=== PATIENT | male | born 1940 | race Caucasian/White ===

== ENCOUNTER 2017-07-01 11:36 | Emergency (ER) | payer MEDICARE ==
[2017-07-01] MEDS ORDERED: Sodium Chloride 0.9% 1000 ML 1,000 ML IV STA (11:41)
[2017-07-01] MEDS ORDERED: Adacel Vial IM ONE ×2 (11:43→11:45)
[2017-07-01] MEDS ORDERED: Sodium Chloride 0.9% 1000 ML 1,000 ML ONE (11:44)
[2017-07-01] MEDS ORDERED: XYLOCAINE 1% HCL 20 ML MDV IJ ONE (11:46)
--- NOTE | 2017-07-01 11:54 | ERPHSYRPT ---
- History of Present Illness Time Seen by Provider: 07/01/17 11:48 Source: patient, EMS Exam Limitations: no limitations Physician History: pt episode of syncope today while sitting, +headache and left foot laceration, no NV, initial SP 80, P0gylIB 95%, no chest pain, +headache Allergies/Adverse Reactions: No Known Drug Allergies Allergy (Unverified 08/26/15 18:06) Home Medications: Allopurinol 100 mg [Zyloprim 100 mg] 100 mg PO DAILY 08/26/15 [History] Carvedilol 12.5 mg [Coreg 12.5 mg] 12.5 mg PO BID 08/26/15 [History] Finasteride 5 mg [Proscar 5 MG] 5 mg PO HS 08/26/15 [History] Levothyroxine Sodium 150 Mcg [Synthroid 150 Mcg] 150 mcg PO DAILY 08/26/15 [History] Metformin HCl 500 mg [Glucophage 500 MG] 1,000 mg PO DAILY 08/26/15 [ History] Pravastatin Sodium [Pravachol] 80 mg PO HS 08/26/15 [History] Trazodone HCl 50 mg [Desyrel 50 mg] 50 mg PO HS PRN 08/26/15 [History] Hx Tetanus, Diphtheria Vaccination/Date Given: No Hx Influenza Vaccination/Date Given: Yes Hx Pneumococcal Vaccination/Date Given: No - Past Medical History Pertinent Past Medical History: Yes Cardiac History: Congestive Heart Failure, Hypertension Respiratory History: Lung Cancer Endocrine Medical History: Diabetes Type II, Hyperthyroidism GI Medical History: Hernia, Ulcer - Past Surgical History Past Surgical History: Yes Neuro Surgical History: No Pertinent History Cardiac: CABG Respiratory: Lobectomy Gastrointestinal: Cholecystectomy, Hernia Repair Other Surgical History: RIGHT - Social History Smoking Status: Never smoker Exposure to second hand smoke: No Drug Use: none Patient Lives Alone: No - Review of Systems Constitutional: No Fever Eyes: No Symptoms Ears, Nose, & Throat: No Epistaxis Respiratory: No Cough, No Cyanosis, No Stridor Cardiac: No Chest Pain Abdominal/Gastrointestinal: No Abdominal Pain, No Vomiting Musculoskeletal: No Back Pain, No Neck Pain Skin: Other (foot laceration) Neurological: Headache, No Focal Weakness Physical Exam - Nursing Vital Signs Nursing Vital Signs: Initial Vital Signs Temperature 97.4 F 07/01/17 11:37 Pulse Rate 57 L 07/01/17 11:37 Respiratory Rate 16 07/01/17 11:37 Blood Pressure 114/47 07/01/17 11:37 O2 Sat by Pulse Oximetry 99 07/01/17 11:37 Pain Scale Pain Intensity 7 - Adry Coma Scale Best Eye Response (Adry): (4) open spontaneously Best Verbal Response (Adry): (5) oriented Best Motor Response (Cherry Log): (6) obeys commands Adry Total: 15 - Physical Exam General Appearance: no apparent distress, alert Eye Exam: bilateral eye: PERRL, EOMI Ears, Nose, Throat Exam: moist mucous membranes Neck Exam: normal inspection, non-tender Respiratory: normal breath sounds Cardiovascular: regular rate/rhythm Gastrointestinal: soft, No tenderness Back Exam: No CVA tenderness, No vertebral tenderness Extremity Exam: other (tender left foot at 1st MTP joint w/ 2cm laceration, sen and pulses intact, rom limited by pain) 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 Exam: normal speech, PERRL Skin Exam: other (hand radio engineering teacher equal) SpO2 Interpretation: normal Oxygen Delivery: Room Air Procedures - Laceration/Wound Repair Left Proximal Toe Progress: 07/01/17 14:02 sterile prep, copious irrigation, no fb or tendon lac seen, interrupted 3-0 nylon five sutures and sterile dress, sutures out in 14 days or sooner - Course Nursing assessment & vital signs reviewed: Yes EKG Interpreted by Me: Other (nsr 63 no stemi) - Radiology Exams Foot X-ray Interpretation: Interpreted by me, Other (+fx of the distal left first metatarsal) Chest X-ray Interpretation: Interpreted by me, Other (no gross infil) - CT Exams Head CT Interpretation: Discussed w/radiologist, Other (no acute bleed) Ordered Tests: Active Orders 24 hr Category Date Time Status Mobile Manager STAT Care 07/01/17 11:42 Active EKG-ER Only STAT Care 07/01/17 11:41 Active IV Insertion STAT Care 07/01/17 11:41 Active Prepare for Sutures STAT Care 07/01/17 11:46 Active Pulse Oximetry (ED) STAT Care 07/01/17 11:41 Active Sutures STAT Care 07/01/17 11:47 Active CHEST 1 VIEW (PORTABLE) Stat Exams 07/01/17 11:41 Taken FOOT (MINIMUM 3 VIEWS) Stat Exams 07/01/17 11:44 Taken HEAD WITHOUT CONTRAST [CT] Stat Exams 07/01/17 11:42 Taken BLOOD CULTURE Stat Lab 07/01/17 12:10 Received CBC W DIFF Stat Lab 07/01/17 11:55 Completed CMP Stat Lab 07/01/17 11:55 Completed Lactic Acid Stat Lab 07/01/17 12:15 Results Manual Differential NC Stat Lab 07/01/17 11:55 Completed PROTIME WITH INR Stat Lab 07/01/17 11:55 Completed SED RATE [Erythrocyte Sedimentation Rate] Stat Lab 07/01/17 11:46 Completed TROPONIN Q3H Lab 07/01/17 11:55 Completed TROPONIN Q3H Lab 07/01/17 14:45 Ordered TROPONIN Q3H Lab 07/01/17 17:45 Ordered TROPONIN Q3H Lab 07/01/17 20:45 Ordered TROPONIN Q3H Lab 07/01/17 23:45 Ordered UA W/RFX UR CULTURE Stat Lab 07/01/17 11:41 Ordered Medication Summary Generic Name Dose Route Start Last Admin Trade Name Freq PRN Reason Stop Dose Admin Cefazolin Sodium/Dextrose 1 gm in 50 mls @ 100 mls/hr 07/01/17 14:00 Kefzol 1 Gm/50 Ml Premix IV 07/01/17 14:29 STAT STA Discontinued Medications Generic Name Dose Route Start Last Admin Trade Name Freq PRN Reason Stop Dose Admin Bacitracin Confirm 07/01/17 13:57 Baciguent Packet Administered 07/01/17 13:58 Dose 1 gm .ROUTE .STK-MED ONE Diphtheria/Tetanus/Acell Pertussis 0.5 ml 07/01/17 11:43 07/01/17 11:46 Adacel Vial IM 07/01/17 11:44 0.5 ml .ONCE ONE Administration Diphtheria/Tetanus/Acell Pertussis Confirm 07/01/17 11:45 Adacel Vial Administered 07/01/17 11:46 Dose 0.5 ml IM .STK-MED ONE Sodium Chloride 1,000 mls @ 999 mls/hr 07/01/17 11:41 07/01/17 11:46 Sodium Chloride 0.9% 1000 Ml IV 07/01/17 12:41 999 mls/hr .Q1H1M STA Administration Sodium Chloride Confirm 07/01/17 11:44 Sodium Chloride 0.9% 1000 Ml Administered 07/01/17 11:45 Dose 1,000 mls @ ud .ROUTE .STK-MED ONE Lidocaine HCl 10 ml 07/01/17 11:46 Xylocaine 1% Hcl 20 Ml Mdv IJ 07/01/17 11:47 STAT ONE Lidocaine HCl Confirm 07/01/17 13:57 Xylocaine 1% Hcl 20 Ml Mdv Administered 07/01/17 13:58 Dose 5 ml .ROUTE .STK-MED ONE Lab/Rad Data: Laboratory Result Diagrams 07/01/17 11:55 07/01/17 11:55 Laboratory Results 07/01/17 07/01/17 07/01/17 Range/Units 12:15 11:55 11:55 WBC (4.0-10.5) K/mm3 RBC (4.1-5.6) M/mm3 Hgb (12.5-18.0) gm/dl Hct (42-50) % MCV (78-100) fl MCH (26-32) pg MCHC (32-36) g/dl RDW (11.5-14.0) % Plt Count (150-450) K/mm3 MPV (6-9.5) fl Segmented Neutrophils (36.-66.) % Lymphocytes (Manual) (24-44) % Monocytes (Manual) (0.0-12.0) % Eosinophils (Manual) (0.00-3.0) % Differential Comment Hypersegmented Polys Platelet Estimate (NORMAL) ESR (0-15) mm/hr INR 1.11 (0.8-3.0) Sodium (136-145) mEq/L Potassium (3.5-5.1) mEq/L Chloride (98-107) mEq/L Carbon Dioxide (21-32) mEq/L Anion Gap (5-15) MEQ/L BUN (9-20) mg/dL Creatinine (0.55-1.30) mg/dl Estimated GFR ML/MIN Glucose (70-110) MG/DL Lactic Acid 2.2 H (0.4-2.0) Calcium (8.5-10.1) mg/dL Total Bilirubin (0.2-1.0) mg/dL AST (15-37) U/L ALT (12-78) U/L Alkaline Phosphatase (46-116) U/L Troponin I 0.308 H* (0.000-0.056) ng/ml Serum Total Protein (6.4-8.2) gm/dL Albumin (3.4-5.0) g/dL 07/01/17 07/01/17 07/01/17 Range/Units 11:55 11:55 11:46 WBC 14.9 H (4.0-10.5) K/mm3 RBC 4.54 (4.1-5.6) M/mm3 Hgb 14.1 (12.5-18.0) gm/dl Hct 43.0 (42-50) % MCV 94.7 (78-100) fl MCH 31.1 (26-32) pg MCHC 32.8 (32-36) g/dl RDW 14.2 H (11.5-14.0) % Plt Count 240 (150-450) K/mm3 MPV 11.8 H (6-9.5) fl Segmented Neutrophils 68 H (36.-66.) % Lymphocytes (Manual) 20 L (24-44) % Monocytes (Manual) 9 (0.0-12.0) % Eosinophils (Manual) 3 (0.00-3.0) % Differential Comment NORMAL Hypersegmented Polys 1+ Platelet Estimate NORMAL (NORMAL) ESR 21 H (0-15) mm/hr INR (0.8-3.0) Sodium 137 (136-145) mEq/L Potassium 4.6 (3.5-5.1) mEq/L Chloride 101 (98-107) mEq/L Carbon Dioxide 22.1 (21-32) mEq/L Anion Gap 18.9 H (5-15) MEQ/L BUN 53 H (9-20) mg/dL Creatinine 1.79 H (0.55-1.30) mg/dl Estimated GFR 39 ML/MIN Glucose 100 (70-110) MG/DL Lactic Acid (0.4-2.0) Calcium 9.1 (8.5-10.1) mg/dL Total Bilirubin 0.60 (0.2-1.0) mg/dL AST 44 H (15-37) U/L ALT 45 (12-78) U/L Alkaline Phosphatase 63 (46-116) U/L Troponin I (0.000-0.056) ng/ml Serum Total Protein 7.1 (6.4-8.2) gm/dL Albumin 3.2 L (3.4-5.0) g/dL - Progress Progress: unchanged Progress Note: 07/01/17 14:08 pt released by [place] for transfer to accepting Dr Phyllis fontanez [place] Counseled pt/family regarding: lab results, diagnosis, need for follow-up, rad results - Departure Time of Disposition: 14:06 Departure Disposition: Transfer Clinical Impression: Elevated troponin, Fracture, Laceration Syncope Qualifiers: Syncope type: unspecified Qualified Code(s): R55 - Syncope and collapse Foot fracture, left Qualifiers: Encounter type: initial encounter Fracture type: open Qualified Code(s): S92.902B - Unspecified fracture of left foot, initial encounter for open fracture Condition: Stable Critical Care Time: No Referrals: [facility] [Primary Care Provider] -
[2017-07-01 12:21] LABS: Lactic Acid 2.2 (0.4-2.0)
[2017-07-01 12:29] LABS: Hemoglobin 14.1 gm/dl (12.5-18.0); Mean Cell Volume 94.7 fl (78-100); Mean Corpuscular Hemoglobin 31.1 pg (26-32); Mean Corpuscular Hgb Concent. 32.8 g/dl (32-36); Mean Platelet Volume 11.8 fl (6-9.5); Platelet Count 240 K/mm3 (150-450); Red Blood Count 4.54 M/mm3 (4.1-5.6); Red Cell Distribution Width 14.2 % (11.5-14.0); White Blood Count 14.9 K/mm3 (4.0-10.5)
[2017-07-01 12:37] LABS: INR 1.11 (0.8-3.0)
[2017-07-01 12:49] LABS: ALBUMIN 3.2 g/dL (3.4-5.0); ANION GAP 18.9 MEQ/L (5-15); BILIRUBIN,TOTAL 0.6 mg/dL (0.2-1.0); Calcium 9.1 mg/dL (8.5-10.1); Carbon Dioxide 22.1 mEq/L (21-32); Creatinine 1 1.79 mg/dl (0.55-1.30); Potassium 4.6 mEq/L (3.5-5.1); Total Protein 7.1 gm/dL (6.4-8.2)
[2017-07-01 12:57] LABS: Eosinophil 3 % (0.00-3.0); Hypersegmented Polys 1+; Lymphocytes 20 % (24-44); Monocyte 9 % (0.0-12.0); Neutrophils 68 % (36.-66.); Platelet Estimate NORMAL (NORMAL); Total Cells Counted 100
[2017-07-01] MEDS ORDERED: XYLOCAINE 1% HCL 20 ML MDV ONE (13:57)
[2017-07-01] MEDS ORDERED: BACIGUENT PACKET ONE (13:57)
[2017-07-01] MEDS ORDERED: KEFZOL 1 GM/50 ML PREMIX** 1 GM/50 ML IVPB IV STA (14:00)
[2017-07-01] MEDS ORDERED: BABY ASPIRIN 81 MG CHEW PO ONE (14:09)
[2017-07-01] MEDS ORDERED: BACIGUENT PACKET TP ONE (15:10)
[2017-07-01] MEDS ORDERED: BABY ASPIRIN 81 MG CHEW ONE (15:23)
[2017-07-01] MEDS ORDERED: KEFZOL 1 GM/50 ML PREMIX** 1 GM/50 ML IVPB IV ONE (15:23)
[2017-07-01 15:58] VITALS: BP 123/54; PULSE 69; O2SAT 99
--- NOTE | 2017-07-01 20:51 | XRAY ---
Indication: Syncope. Multiple contiguous axial images obtained through the head without contrast. Comparison: August 26, 2015. Stable age-appropriate global atrophy and minimal periventricular degenerative micro-ischemia. There is now a 1.5 x 0.8 cm focus of subcortical remote appearing infarct in the right posterior parietal lobe. No acute intracranial hemorrhage, abnormal extra-axial fluid collection, or mass effect. Fourth ventricle is midline. Bony calvarium intact. Visualized paranasal sinuses and mastoid air cells clear. Impression: Again nonacute senile brain. Interval small right parietal infarct. Comment: Preliminary interpretation was made by [facility]. No critical discrepancy. CTDI 50.38
--- NOTE | 2017-07-01 20:55 | XRAY ---
Indication: Pain. Comparison: None 3 views of the left foot demonstrates mild osteopenia, small heel spurs, and 1st MTP bunion deformity with mild degenerative changes. Nondisplaced corner fractures seen base of the 1st/2nd/3rd proximal phalanges, medial aspect. Remaining left foot unremarkable.
--- NOTE | 2017-07-01 20:57 | XRAY ---
Indication: Syncope. Comparison: None Portable chest markedly underinflated without focal infiltrate, consolidation, or large effusion. Heart is not enlarged and demonstrates previous CABG surgery. Bony thorax intact with mild osteopenia, degenerative changes, and old right rib fractures. Impression: Nonacute limited underinflated chest with chronic features.
== END 2017-07-01 15:59 | disposition short-term general hospital (02) ==
LOC: ED 11:36
PROC: 0HQNXZZ Repair Left Foot Skin, External Approach (ICD-10-PCS; principal; 2017-07-01)
DX: R55 Syncope and collapse (principal); S92.902B Unspecified fracture of left foot, initial encounter for open fracture; Z79.899 Other long term (current) drug therapy; I50.9 Heart failure, unspecified; I10 Essential (primary) hypertension; E11.9 Type 2 diabetes mellitus without complications; Z95.1 Presence of aortocoronary bypass graft; R79.89 Other specified abnormal findings of blood chemistry; S91.119A Laceration without foreign body of unspecified toe without damage to nail, initial encounter
CPT/HCPCS: 12001; 36415; 70450; 71010; 73630; 80053; 83605; 84484; 85025; 85610; 85652; 87040; 90471; 90715; 93005; 93041; 96360; 96365; 99285; J0690; A9270-GY

== ENCOUNTER 2017-12-15 11:37 | Inpatient (IN) | payer MEDICARE ==
[2017-12-15 11:51] LABS: A-aADO2 613; ABG HEMOGLOBIN 11.2; ARTERIAL BLD GAS O2 SATURATION 85.2 % (95-100); ARTERIAL BLOOD GAS FIO2 100 %; ARTERIAL BLOOD GAS PCO2 43 mmHg (35-45); ARTERIAL BLOOD GAS pH 7.42 (7.35-7.45); CARBOXYHEMOGLOBIN 2.4 % THgb (0.0-6.9); HCO3- 27.9 (22-28); HGB O2 SAT 82.3 g/dF (94-100); Methhemoglobin 0.9 % (1.4-1.5); paO2 pAO1 0.07
[2017-12-15] MEDS ORDERED: FEVERALL 650 MG ONE ×2 (11:51→14:09)
[2017-12-15 11:52] LABS: ABG SITE LEFT RADIAL; ALLEN TEST OK? YES; ARTERIAL BLOOD GAS PO2 46 mmHg (75-100)
[2017-12-15] MEDS ORDERED: PROVENTIL 2.5 MG/3 ML NEB IH ONE ×2 (11:54→12:03)
[2017-12-15 11:55] LABS: Lactic Acid 3.6 (0.4-2.0)
--- NOTE | 2017-12-15 12:11 | ERPHSYRPT ---
- History of Present Illness Time Seen by Provider: 12/15/17 12:05 Source: patient Exam Limitations: clinical condition, other (stroke) Patient Subjective Stated Complaint: pt brought to ed per medic [address]- nh reports mayda [id number] pt was found with emesis on him-pt began having course breath sounds and low spo2-ems reports pt has low spo2-sob and audible breath sounds Triage Nursing Assessment: pt arrives to ed sob-labored breathing-wet moist breath sounds audible-retractions noted-spo2 77 upon arrival-pt hot to touch- unable to speak which is normal for pt Physician History: The patient is a 77-year-old male brought in by ambulance from a nearby senior living, [facility]. The patient does not talk. The patient had a stroke previously and is unable to take any food or water orally. The patient has a G-tube. This morning around 945 the patient was found with vomitus. He was watched and over the next 2 hours his O2 saturation had dropped and the breath sounds became course. His past medical history is significant for stroke , dysphagia, hypertension, high cholesterol, and hypothyroidism. The patient is DO NOT RESUSCITATE. Timing/Duration: today, hour(s) (2), gradual onset, worse Activities at Onset: none Severity of Dyspnea-Max: severe Severity of Dyspnea-Current: severe Possible Cause: occasional episodes Modifying Factors: Improves With: oxygen Associated Symptoms: denies symptoms Allergies/Adverse Reactions: No Known Drug Allergies Allergy (Verified 12/15/17 11:53) Home Medications: Carvedilol 12.5 mg [Coreg 12.5 mg] 12.5 mg PO BID 08/26/15 [History] Levothyroxine Sodium 150 Mcg [Synthroid 150 Mcg] 175 mcg PO DAILY 08/26/15 [History] Albuterol/Ipratropium 3ml Neb* [DUONEB 0.5-3 MG/3 ml Neb] 3 ml QID 12/15/17 [ History] Aspirin 81 gm Chew [Baby Aspirin 81 mg Chew] 81 mg DAILY 12/15/17 [History ] Atorvastatin Calcium 40 mg DAILY 12/15/17 [History] Bumetanide [Bumetanide] 1 mg DAILY 12/15/17 [History] Clopidogrel Bisulfate 75 mg [PLAVIX 75 MG Tablet] 75 mg DAILY 12/15/17 [ History] Docusate Sodium 100 mg [Colace 100 MG] 100 mg DAILY 12/15/17 [History] Dorzolamide HCl [Trusopt] 1 drop DAILY 12/15/17 [History] Hydrocodone Bit/Acetaminophen [Pine Apple 5-325 Tablet] 1 ea DAILY 12/15/17 [History] Latanoprost 1 drop DAILY 12/15/17 [History] Omeprazole/Sodium Bicarbonate [Omeprazole-Bicarb 20-1,680 Pkt] 1 ea DAILY [History] Prednisolone 6 mg DAILY 12/15/17 [History] Hx Tetanus, Diphtheria Vaccination/Date Given: No Hx Influenza Vaccination/Date Given: Yes Hx Pneumococcal Vaccination/Date Given: No Immunizations Up to Date: Yes - Review of Systems Constitutional: No Fever, No Chills Eyes: No Symptoms Ears, Nose, & Throat: No Symptoms Respiratory: Dyspnea Cardiac: No Chest Pain, No Edema, No Syncope Abdominal/Gastrointestinal: No Abdominal Pain, No Nausea, No Vomiting, No Diarrhea Genitourinary Symptoms: No Dysuria Musculoskeletal: No Back Pain, No Neck Pain Skin: No Rash Neurological: Other (nonverbal, does not communicate. this is baseline,) Psychological: No Symptoms Endocrine: No Symptoms Hematologic/Lymphatic: No Symptoms Immunological/Allergic: No Symptoms All Other Systems: Reviewed and Negative - Past Medical History Pertinent Past Medical History: Yes Cardiac History: Congestive Heart Failure, Hypertension Respiratory History: Lung Cancer Endocrine Medical History: Diabetes Type II, Hyperthyroidism GI Medical History: Hernia, Ulcer Male Reproductive Disorders: Prostate Problems - Past Surgical History Past Surgical History: Yes Neuro Surgical History: No Pertinent History Cardiac: CABG Respiratory: Lobectomy Gastrointestinal: Cholecystectomy, Hernia Repair Other Surgical History: RIGHT - Social History Smoking Status: Never smoker Exposure to second hand smoke: No Drug Use: none Patient Lives Alone: No - Nursing Vital Signs Nursing Vital Signs: Initial Vital Signs Respiratory Rate 26 H 12/15/17 11:40 O2 Sat by Pulse Oximetry 77 L 12/15/17 11:40 Pain Scale Pain Intensity 0 - Physical Exam General Appearance: severe distress Eye Exam: PERRL/EOMI Ears, Nose, Throat Exam: hearing grossly normal Neck Exam: non-tender Respiratory Exam: rhonchi Cardiovascular/Chest Exam: normal heart sounds, regular rate/rhythm Abdominal/Gastrointestinal Exam: soft, No tenderness, No distention, No mass Rectal Exam: not done Extremity Exam: No pedal edema, No swelling Neurologic Exam: aphasia, other (pt does not communicate as baseline.) Skin Exam: normal color SpO2 Interpretation: normal SpO2: 77 Oxygen Delivery: Non-rebreather - Course EKG Interpreted by Me: RATE, Sinus Rhythm, NORMAL INTERVALS, NORMAL QRS, Other ( no change compared to EKG from 07/01/17) - Radiology Exams Chest X-ray Interpretation: Reviewed by me, Teleradiologist Report, Negative (stable nonacute underinflated chest per Dr Velasquez.) Ordered Tests: Active Orders 24 hr Category Date Time Status Jewel Waxer STAT Care 12/15/17 11:59 Active EKG-ER Only STAT Care 12/15/17 11:59 Active IV Insertion STAT Care 12/15/17 11:59 Active NPO (ED) STAT Care 12/15/17 11:59 Active Oxygen-ED Only NON-REBREATHER 100% Care 12/15/17 11:59 Active Pulse Oximetry (ED) STAT Care 12/15/17 11:59 Active CHEST 1 VIEW (PORTABLE) Stat Exams 12/15/17 12:20 Completed ABG [ARTERIAL BLOOD GASES] Urgent Lab 12/15/17 11:47 Completed BLOOD CULTURE Stat Lab 12/15/17 12:10 Received CBC W DIFF Stat Lab 12/15/17 12:10 Completed CMP Stat Lab 12/15/17 12:10 Completed Lactic Acid Stat Lab 12/15/17 13:55 Ordered Lactic Acid Urgent Lab 12/15/17 11:47 Completed Manual Differential NC Stat Lab 12/15/17 12:10 Completed NT PRO BNP Stat Lab 12/15/17 12:10 Completed TROPONIN Q3H Lab 12/15/17 12:10 Completed TROPONIN Q3H Lab 12/15/17 15:30 Ordered TROPONIN Q3H Lab 12/15/17 18:30 Ordered TROPONIN Q3H Lab 12/15/17 21:30 Ordered TROPONIN Q3H Lab 12/16/17 00:30 Ordered Respiratory Nebulizer STAT RT 12/15/17 12:03 Completed Medication Summary Generic Name Dose Route Start Last Admin Trade Name Freq PRN Reason Stop Dose Admin Sodium Chloride 1,000 mls @ 100 mls/hr 12/15/17 12:30 12/15/17 13:11 Sodium Chloride 0.9% 1000 Ml IV 01/14/18 12:29 100 mls/hr .Q10H CHANELLE Administration Discontinued Medications Generic Name Dose Route Start Last Admin Trade Name Lio PRN Reason Stop Dose Admin Acetaminophen Confirm 12/15/17 11:51 Feverall 650 Mg Administered 12/15/17 11:52 Dose 650 mg .ROUTE .STK-MED ONE Albuterol Sulfate Confirm 12/15/17 11:54 Proventil 2.5 Mg/3 Ml Neb Administered 12/15/17 11:55 Dose 2.5 mg IH .STK-MED ONE Albuterol Sulfate 2.5 mg 12/15/17 12:03 12/15/17 12:05 Proventil 2.5 Mg/3 Ml Neb IH 12/15/17 12:04 2.5 mg STAT ONE Administration Ceftriaxone Sodium/Dextrose 1 g in 50 mls @ 100 mls/hr 12/15/17 12:19 12:39 Rocephin 1 Gm-D5w 50 Ml Bag IV 12/15/17 12:48 100 ml/hr STAT STA 100 mls/hr Administration Ceftriaxone Sodium/Dextrose Confirm 12/15/17 12:38 Rocephin 1 Gm-D5w 50 Ml Bag Administered 12/15/17 12:39 Dose 1 g in 50 mls @ ud IV .STK-MED ONE Sodium Chloride 1,000 mls @ 999 mls/hr 12/15/17 12:39 12/15/17 12:40 Sodium Chloride 0.9% 1000 Ml IV 12/15/17 13:39 999 mls/hr .Q1H1M STA Administration Lab/Rad Data: Laboratory Result Diagrams 12/15/17 12:10 12/15/17 12:10 Laboratory Results 12/15/17 12/15/17 12/15/17 Range/Units 12:10 12:10 12:10 WBC 38.9 H* (4.0-10.5) K/mm3 RBC 4.39 (4.1-5.6) M/mm3 Hgb 11.0 L (12.5-18.0) gm/dl Hct 35.2 L (42-50) % MCV 80.2 (78-100) fl MCH 25.0 L (26-32) pg MCHC 31.3 L (32-36) g/dl RDW 17.0 H (11.5-14.0) % Plt Count 335 (150-450) K/mm3 MPV 11.6 H (6-9.5) fl Absolute Granulocytes 31.5 H (1.4-6.9) Segmented Neutrophils 48 (36.-66.) % Band Neutrophils 33 H (0.0-2.0) % Lymphocytes (Manual) 15 L (24-44) % Monocytes (Manual) 3 (0.0-12.0) % Myelocytes 1 % Nucleated RBCs 1 % Hypochromia 2+ Platelet Estimate NORMAL (NORMAL) RBC Morphology ABNORMAL Polychromasia 1+ Poikilocytosis 2+ Anisocytosis 2+ Acanthocytes (Spur) 2+ Puncture Site pCO2 (35-45) mmHg pO2 (75-100) mmHg Base Excess (-2.0-2.0) O2 Saturation (94-100) g/dF ABG pH (7.35-7.45) ABG HCO3 (22-28) ABG O2 Sat (Measured) (95-100) % Chandler Test A-a Gradient a/A Ratio Hemoglobin Carboxyhemoglobin (0.0-6.9) % THgb Methemoglobin (1.4-1.5) % Potassium 4.2 (3.5-5.1) Temperature C POC O2 Flow Rate % Sodium 133 L (137-145) mmol/L Chloride 92 L (98-107) mmol/L Carbon Dioxide 27 (22-30) mmol/L Anion Gap 18.8 H (5-15) MEQ/L BUN 43 H (9-20) mg/dL Creatinine 0.90 (0.66-1.25) mg/dL Estimated GFR > 60.0 ML/MIN Glucose 140 H (74-106) mg/dL Lactic Acid (0.4-2.0) Calcium 9.9 (8.4-10.2) mg/dL Total Bilirubin 0.60 (0.2-1.3) mg/dL AST 48 (17-59) U/L ALT 37 (0-50) U/L Alkaline Phosphatase 89 (38-126) U/L Troponin I 0.043 H* (0.000-0.034) ng/mL NT-Pro-B Natriuret Pep 27357 H (0-1800) pg/mL Serum Total Protein 7.3 (6.3-8.2) g/dL Albumin 3.8 (3.5-5.0) g/dL 12/15/17 12/15/17 Range/Units 11:47 11:47 WBC (4.0-10.5) K/mm3 RBC (4.1-5.6) M/mm3 Hgb (12.5-18.0) gm/dl Hct (42-50) % MCV (78-100) fl MCH (26-32) pg MCHC (32-36) g/dl RDW (11.5-14.0) % Plt Count (150-450) K/mm3 MPV (6-9.5) fl Absolute Granulocytes (1.4-6.9) Segmented Neutrophils (36.-66.) % Band Neutrophils (0.0-2.0) % Lymphocytes (Manual) (24-44) % Monocytes (Manual) (0.0-12.0) % Myelocytes % Nucleated RBCs % Hypochromia Platelet Estimate (NORMAL) RBC Morphology Polychromasia Poikilocytosis Anisocytosis Acanthocytes (Spur) Puncture Site LEFT RADIAL pCO2 43 (35-45) mmHg pO2 46 L* (75-100) mmHg Base Excess 3.0 H (-2.0-2.0) O2 Saturation 82.3 L (94-100) g/dF ABG pH 7.42 (7.35-7.45) ABG HCO3 27.9 (22-28) ABG O2 Sat (Measured) 85.2 L (95-100) % Chandler Test YES A-a Gradient 613 a/A Ratio 0.07 Hemoglobin 11.2 Carboxyhemoglobin 2.4 (0.0-6.9) % THgb Methemoglobin 0.9 L (1.4-1.5) % Potassium 4.0 (3.5-5.1) Temperature 37.0 C POC O2 Flow Rate 100 % Sodium (137-145) mmol/L Chloride (98-107) mmol/L Carbon Dioxide (22-30) mmol/L Anion Gap (5-15) MEQ/L BUN (9-20) mg/dL Creatinine (0.66-1.25) mg/dL Estimated GFR ML/MIN Glucose (74-106) mg/dL Lactic Acid 3.6 H (0.4-2.0) Calcium (8.4-10.2) mg/dL Total Bilirubin (0.2-1.3) mg/dL AST (17-59) U/L ALT (0-50) U/L Alkaline Phosphatase (38-126) U/L Troponin I (0.000-0.034) ng/mL NT-Pro-B Natriuret Pep (0-1800) pg/mL Serum Total Protein (6.3-8.2) g/dL Albumin (3.5-5.0) g/dL - Progress Progress: unchanged Air Movement: fair Blood Culture(s) Obtained: Yes Antibiotics given: Yes Discussed with : Lulú Will see patient in: hospital (full admit) Counseled pt/family regarding: lab results, diagnosis, rad results - Departure Time of Disposition: 14:06 Departure Disposition: In-patient Admission (ICU per Dr Medley) Clinical Impression: Aspiration into respiratory tract Condition: Stable Critical Care Time: No Referrals: [facility] [LOCATION] -
[2017-12-15] MEDS ORDERED: ROCEPHIN 1 Gm-D5w 50 ml Bag** 1 G/50 ML IVPB IV STA (12:19)
[2017-12-15] MEDS ORDERED: Sodium Chloride 0.9% 1000 ML 1,000 ML IV SCH (12:30)
[2017-12-15 12:31] LABS: Hematocrit 35.2 % (42-50); Mean Cell Volume 80.2 fl (78-100); Mean Corpuscular Hgb Concent. 31.3 g/dl (32-36); Mean Platelet Volume 11.6 fl (6-9.5); Platelet Count 335 K/mm3 (150-450); Red Blood Count 4.39 M/mm3 (4.1-5.6)
[2017-12-15 12:36] LABS: White Blood Count 38.9 K/mm3 (4.0-10.5)
[2017-12-15] MEDS ORDERED: ROCEPHIN 1 Gm-D5w 50 ml Bag** 1 G/50 ML IVPB IV ONE (12:38)
[2017-12-15] MEDS ORDERED: Sodium Chloride 0.9% 1000 ML 1,000 ML IV STA ×2 (12:39→14:28)
[2017-12-15 12:51] LABS: ALBUMIN 3.8 g/dL (3.5-5.0); ALKALINE PHOSPHATASE 89 U/L (38-126); ANION GAP 18.8 MEQ/L (5-15); BLOOD UREA NITROGEN 43 mg/dL (9-20); CHLORIDE 92 mmol/L (98-107); Calcium 9.9 mg/dL (8.4-10.2); Carbon Dioxide 27 mmol/L (22-30); Glucose 140 mg/dL (74-106); Potassium 4.2 mmol/L (3.5-5.1); SGOT/AST 48 U/L (17-59); SODIUM 133 mmol/L (137-145); Total Protein 7.3 g/dL (6.3-8.2)
--- NOTE | 2017-12-15 12:51 | XRAY ---
Indication: Short of breath. Comparison: July 01, 2017. Portable chest remains underinflated with stable right apical postsurgical changes and previous CABG surgery. No focal infiltrate, consolidation, or large effusion. Heart is not enlarged. Bony thorax intact again with mild osteopenia, degenerative changes, and old right 6 rib fracture. Impression: Stable nonacute underinflated chest with chronic features.
[2017-12-15 12:57] LABS: SGPT/ALT 37 U/L (0-50)
[2017-12-15 12:59] LABS: NT PRO BNP 16600 pg/mL (0-1800)
[2017-12-15 13:14] LABS: BAND 33 % (0.0-2.0); Lymphocytes 15 % (24-44); Monocyte 3 % (0.0-12.0); Myelocyte 1 %; Neutrophils 48 % (36.-66.); Nucleated Red Blood Cell 1 %; Total Cells Counted 100
[2017-12-15 13:15] LABS: Platelet Estimate NORMAL (NORMAL)
[2017-12-15 13:16] LABS: ACANTHROCYTES 2+; ANISOCYTOSIS 2+; Hypochromia 2+; Poikilocytosis 2+; Polychromasia 1+
[2017-12-15 13:17] LABS: Granulocyte Absolute (ANC) 31.5 (1.4-6.9)
[2017-12-15] MEDS ORDERED: FEVERALL 325 MG PR STA (14:05)
[2017-12-15] MEDS ORDERED: Zofran 4 MG/2 ML VIAL IV ONE (15:22)
[2017-12-15] MEDS ORDERED: PROVENTIL 2.5 MG/3 ML NEB IH SCH (15:22)
[2017-12-15] MEDS ORDERED: FEVERALL 650 MG PR ONE (15:22)
[2017-12-15] MEDS ORDERED: Zosyn INJ 4.5 GM in Sodium Chloride 100ML MINI-BAG PLUS 100 ML IV SCH (15:30)
[2017-12-15 17:50] VITALS: BP 64/34; PULSE 94; O2SAT 87
[2017-12-15] MEDS ORDERED: Unasyn 3GM / NaCl 100ML 3 GM/100 ML IVPB IV SCH (18:00)
--- NOTE | 2017-12-17 18:30 | PCM.NOTE ---
Date and Time: 12/15/171819 OBJECTIVE DATA Vital Signs: Pain Assessment - Last Documented Pain Intensity 0 Pain Scale Used FLACC Intake and Output: Intake & Output 12/15/17 12/16/17 12/17/17 12/18/17 11:59 11:59 11:59 11:59 Weight 67.5 kg Assessment/Plan (1) Septic shock Status: Acute Assessment & Plan: I was contacted by Dr. Siddiqui to admit the patient for aspiration pneumonia to the ICU. He is a patient of the [place] who was treated recently at [facility] and the [place] for a stroke and discharged to [facility] for further care. He had a G tube that he was dependent on and was tolerating the feeds well until the morning of presentation he began vomiting and became short of breath and low oxygen. He had been on room air. Per his nurse at [facility] he had a soft nontender abdomen before and after the vomiting and the shortness of breath developed after the vomiting. He has had multiple episodes of pneumonia and aspiration. He had rather severe expressive aphasia that was showing some minimal improvement. He was also weak and not walking after the stroke and dependent on nurses for all his care. He was able to understand and express his wishes prior to to today. He has severe peripheral and coronary artery disease from the limited records available and was also been treated for lung cancer previously. At time of accepting around 14:00 the patient was reported to be nonverbal but alert sitting up with a blood pressure of 98/37 pulse ox of 93% RR 16 and HR of 98 and receiving his first bolus of fluids. He had not had repeat lactic acid yet. It was requested he receive IV zosyn and repeat lactic acid after the bolus. "1505-pt arrived from er. pt non-verbal but did respond to voice. pupils non- reactive. temp-101.0 axillary. pt breathing tachypneic and guppy like. resp 40. o2 sat 87% on non-rebreather. unable to obtain a bp at this time, attempted manual and by monitor. hr 94. lung sounds diminished and coarse. bs hypoactive. peripheral pulses weak. nail beds cyanotic. skin cold. skin turgor loose. 1512-sco signed by dr siddiqui (pt [place] dnr [place] the [place]) 1515-o2 sat dropping slowing from 87% to 83%. hr 78. 1518-dr boggs notified of pt status. order obtained to put pt on bipap. attempted bp on l leg and obtained a bp of 64/34. 1528-bipap applied 20/8, back up rate of 20, 100% o2. f/c inserted. urine milky. pt non-responsive to painful stimuli. pupils fixed 1542-bp 33/23, hr 50, resp 18. pt hands mottling. 1550-resp shallow and agonal. hr 33, unable to obtain bp. 1554-no resp, no heartbeat noted. confirmed with morales garcia." After the phone call from the floor at 15:18 with his status after arrival and lack of a blood pressure, his POST form from [facility] was consulted due to the lack of POA available or family it stated "POST: Limited additional interventions: In addition to comfort measures only, use medical treatment for stabilization, IV fluids (hydration) and cardiac monitoring as indicated to stabilize medical condition. May use basic airway mgmt techniques and non-invasive [id number]. Do not intubate. Transfer to hospital if indicated to manage medical needs or comfort. Avoid intensive care if possible. , POST: Long-term artificial nutrition, POST: Use antibiotics consistent with treatment goals" It did indicate he wanted noninvasive ventilation but no intubation and wished to avoid ICU. Based on that and his clinical deterioration he was receiving iv fluid boluses, the zosyn had not been started yet and thus order to start 4.5 g of iv zosyn, and pressers were not started at that time with review of POST stating to avoid ICU care. My intention was to be able to assess him by 16:00 after the bolus and bipap unfortunately he was within 45 minutes of him leaving the emergency department. Code(s): A41.9 - SEPSIS, UNSPECIFIED ORGANISM; R65.21 - SEVERE SEPSIS WITH SEPTIC SHOCK (2) Aspiration pneumonia Status: Acute Code(s): J69.0 - PNEUMONITIS DUE TO INHALATION OF FOOD AND VOMIT (3) Peripheral vascular disease Status: Chronic Code(s): I73.9 - PERIPHERAL VASCULAR DISEASE, UNSPECIFIED (4) Coronary arteriosclerosis Status: Chronic (5) History of stroke with residual deficit Status: Chronic Code(s): I69.30 - UNSPECIFIED SEQUELAE OF CEREBRAL INFARCTION (6) Expressive aphasia Status: Chronic Code(s): R47.01 - APHASIA (7) History of lung cancer Status: Chronic Code(s): Z85.118 - PERSONAL HISTORY OF MALIGNANT NEOPLASM OF BRONCHUS AND LUNG (8) Dysphagia as late effect of stroke Status: Chronic Code(s): I69.391 - DYSPHAGIA FOLLOWING CEREBRAL INFARCTION (9) Gastrostomy tube dependent Status: Chronic Code(s): Z93.1 - GASTROSTOMY STATUS
--- NOTE | 2017-12-28 14:07 | PCM.SSS ---
History of Present Illness - Chief Complaint Chief Complaint: aspiration pneumonia History of Present Illness: is a 77 year old male. Medications & Allergies Home Medications: Home Medication List Carvedilol 12.5 mg [Coreg 12.5 mg] 12.5 mg PO BID 08/26/15 [History Confirmed 12/15/17] Levothyroxine Sodium 150 Mcg [Synthroid 150 Mcg] 175 mcg PO DAILY 08/26/15 [History Confirmed 12/15/17] Hydrocodone Bit/Acetaminophen [[place] 5/325Mg] 1 each PO Q4-6HPRN PRN #30 tablet 08/28/15 [Rx Confirmed 12/15/17] Albuterol/Ipratropium 3ml Neb* [DUONEB 0.5-3 MG/3 ml Neb] 3 ml QID 12/15/17 [ History Confirmed 12/15/17] Aspirin 81 gm Chew [Baby Aspirin 81 mg Chew] 81 mg DAILY 12/15/17 [ History Confirmed 12/15/17] Atorvastatin Calcium 40 mg DAILY 12/15/17 [History Confirmed 12/15/17] Bumetanide 1 mg DAILY 12/15/17 [History Confirmed 12/15/17] Clopidogrel Bisulfate 75 mg [PLAVIX 75 MG Tablet] 75 mg DAILY 12/15/17 [ History Confirmed 12/15/17] Docusate Sodium 100 mg [Colace 100 MG] 100 mg DAILY 12/15/17 [History Confirmed 12/15/17] Dorzolamide HCl [Trusopt] 1 drop DAILY 12/15/17 [History Confirmed 12/15/17] Hydrocodone Bit/Acetaminophen [[place] 5-325 Tablet] 1 ea DAILY 12/15/17 [History Confirmed 12/15/17] Latanoprost 1 drop DAILY 12/15/17 [History Confirmed 12/15/17] Omeprazole/Sodium Bicarbonate [Omeprazole-Bicarb 20-1,680 Pkt] 1 ea DAILY [History Confirmed 12/15/17] Prednisolone 6 mg DAILY 12/15/17 [History Confirmed 12/15/17] Allergies/Adverse Reactions: Allergies Allergy/AdvReac Type Severity Reaction Status Date / Time No Known Drug Allergies Allergy Verified 12/15/17 11:53 - Past Medical History Past Medical History: Yes Neurological History: Stroke ENT History: Glaucoma Cardiac History: Congestive Heart Failure, Hypertension Respiratory History: Lung Cancer Endocrine Medical History: Diabetes Type II, Hyperthyroidism Musculoskelatal History: No Pertinent History GI Medical History: GERD, Hernia, Ulcer History: No Pertinent History Pyscho-Social History: No Pertinent History Male Reproductive Disorders: Prostate Problems - Past Surgical History Past Surgical History: Yes Neuro Surgical History: No Pertinent History Cardiac History: CABG Respiratory Surgery: Lobectomy GI Surgical History: Cholecystectomy, Hernia Repair Other Surgical History: pt unable to give history - Social History Smoking Status: Never smoker Exposure to second hand smoke: No Alcohol: None Drug Use: none Results - Labs Lab/Micro Results: Microbiology 12/15/17 12:10 Blood Culture Gram Stain - Final Blood Blood Culture - Final SEE PREVIOUS CULTURE FOR IDENTIFICATION AND SENSITIVITY. 12/15/17 12:05 Blood Culture Gram Stain - Final Blood Blood Culture - Final Staphylococcus Aureus Assessment/Plan (1) Septic shock Status: Acute Code(s): A41.9 - SEPSIS, UNSPECIFIED ORGANISM; R65.21 - SEVERE SEPSIS WITH SEPTIC SHOCK (2) Aspiration pneumonia Status: Acute Code(s): J69.0 - PNEUMONITIS DUE TO INHALATION OF FOOD AND VOMIT (3) Peripheral vascular disease Status: Chronic Code(s): I73.9 - PERIPHERAL VASCULAR DISEASE, UNSPECIFIED (4) Coronary arteriosclerosis Status: Chronic (5) History of stroke with residual deficit Status: Chronic Code(s): I69.30 - UNSPECIFIED SEQUELAE OF CEREBRAL INFARCTION (6) Expressive aphasia Status: Chronic Code(s): R47.01 - APHASIA (7) History of lung cancer Status: Chronic Code(s): Z85.118 - PERSONAL HISTORY OF MALIGNANT NEOPLASM OF BRONCHUS AND LUNG (8) Dysphagia as late effect of stroke Status: Chronic Code(s): I69.391 - DYSPHAGIA FOLLOWING CEREBRAL INFARCTION (9) Gastrostomy tube dependent Status: Chronic Code(s): Z93.1 - GASTROSTOMY STATUS (10) Bacteremia due to methicillin susceptible Staphylococcus aureus (MSSA) Status: Acute Code(s): R78.81 - BACTEREMIA Hospital Summary - Hospital Course Hospital Course: I was contacted by Dr. Siddiqui to admit the patient for aspiration pneumonia to the ICU. He is a patient of the [place] who was treated recently at [facility] and the [place] for a [place] and discharged to [facility] for further care. He had a G tube that he was dependent on and was tolerating the feeds well until the morning of presentation he began vomiting and became short of breath and low oxygen. He had been on room air. Per his nurse at [facility] he had a soft nontender abdomen before and after the vomiting and the shortness of breath developed after the vomiting. He has had multiple episodes of pneumonia and aspiration. He had rather severe expressive aphasia that was showing some minimal improvement. He was also weak and not walking after the stroke and dependent on nurses for all his care. He was able to understand and express his wishes prior to to today. He has severe peripheral and coronary artery disease from the limited records available and was also been treated for lung cancer previously. At time of accepting around 14:00 the patient was reported to be nonverbal but alert sitting up with a blood pressure of 98/37 pulse ox of 93% RR 16 and HR of 98 and receiving his first bolus of fluids. He had not had repeat lactic acid yet. It was requested he receive IV zosyn and repeat lactic acid after the bolus. "1505-pt arrived from er. pt non-verbal but did respond to voice. pupils non- reactive. temp-101.0 axillary. pt breathing tachypneic and guppy like. resp 40. o2 sat 87% on non-rebreather. unable to obtain a bp at this time, attempted manual and by monitor. hr 94. lung sounds diminished and coarse. bs hypoactive. peripheral pulses weak. nail beds cyanotic. skin cold. skin turgor loose. 1512-sco signed by dr siddiqui (pt had dnr at the [place]) 1515-o2 sat dropping slowing from 87% to 83%. hr 78. 1518-dr souza notified of pt status. order obtained to put pt on bipap. attempted bp on l leg and obtained a bp of 64/34. 1528-bipap applied 20/8, back up rate of 20, 100% o2. f/c inserted. urine milky. pt non-responsive to painful stimuli. pupils fixed 1542-bp 33/23, hr 50, resp 18. pt hands mottling. 1550-resp shallow and agonal. hr 33, unable to obtain bp. 1554-no resp, no heartbeat noted. confirmed with [place],rn." After the phone call from the floor at 15:18 with his status after arrival and lack of a blood pressure, his POST form from [facility] was consulted due to the lack of POA available or family it stated "POST: Limited additional interventions: In addition to comfort measures only, use medical treatment for stabilization, IV fluids (hydration) and cardiac monitoring as indicated to stabilize medical condition. May use basic airway mgmt techniques and non-invasive [id number]. Do not intubate. Transfer to hospital if indicated to manage medical needs or comfort. Avoid intensive care if possible. , POST: Long-term artificial nutrition, POST: Use antibiotics consistent with treatment goals" It did indicate he wanted noninvasive ventilation but no intubation and wished to avoid ICU. Based on that and his clinical deterioration he was receiving iv fluid boluses, the zosyn had not been started yet and thus order to start 4.5 g of iv zosyn, and pressers were not started at that time with review of POST stating to avoid ICU care. My intention was to be able to assess him by 16:00 after the bolus and bipap unfortunately he was within 45 minutes of him leaving the emergency department. - Vitals & Intake/Output Vital Signs: Vital Signs Temperature 101.0 F 12/15/17 16:30 Pulse Rate 94 H 12/15/17 16:30 Respiratory Rate 40 H 12/15/17 16:30 Blood Pressure 64/34 12/15/17 16:30 O2 Sat by Pulse Oximetry 87 L 12/15/17 16:30 - Lab Result Diagrams: 12/15/17 12:10 12/15/17 12:10 Micro Results-Entire Visit: Microbiology 12/15/17 12:10 Blood Culture Gram Stain - Final Blood Blood Culture - Final SEE PREVIOUS CULTURE FOR IDENTIFICATION AND SENSITIVITY. 12/15/17 12:05 Blood Culture Gram Stain - Final Blood Blood Culture - Final Staphylococcus Aureus - Procedures and Test Procedures and Tests throughout Hospitalization: Therapy Orders & Screens 12/15/17 12:03 Respiratory Nebulizer STAT Comment: Diagnosis: Shortness of Breath 12/15/17 15:22 Oxygen NON-REBREATHER 15% Comment: Diagnosis: Shortness of Breath Respiratory Therapy Consult ROUTINE Comment: Reason For Exam: Diagnosis: Shortness of Breath 12/15/17 15:25 BiPap/CPAP STAT Comment: Diagnosis: Shortness of Breath - Discharge Disposition: Still a Patient Condition: Prescriptions: No Action Levothyroxine Sodium 150 Mcg [Synthroid 150 Mcg] 175 mcg PO DAILY Carvedilol 12.5 mg [Coreg 12.5 mg] 12.5 mg PO BID Hydrocodone Bit/Acetaminophen [[place] 5/325Mg] 1 each PO Q4-6HPRN PRN #30 tablet PRN Reason: Pain Atorvastatin Calcium 40 mg DAILY Prednisolone 6 mg DAILY Omeprazole/Sodium Bicarbonate [Omeprazole-Bicarb 20-1,680 Pkt] 1 ea DAILY Latanoprost 1 drop DAILY Hydrocodone Bit/Acetaminophen [[place] 5-325 Tablet] 1 ea DAILY Dorzolamide HCl [Trusopt] 1 drop DAILY Docusate Sodium 100 mg [Colace 100 MG] 100 mg DAILY Clopidogrel Bisulfate 75 mg [PLAVIX 75 MG Tablet] 75 mg DAILY Bumetanide 1 mg DAILY Aspirin 81 gm Chew [Baby Aspirin 81 mg Chew] 81 mg DAILY Albuterol/Ipratropium 3ml Neb* [DUONEB 0.5-3 MG/3 ml Neb] 3 ml QID Follow up with: GEORGETTE SOUZA [Primary Care Provider] - 1 Week
== END 2017-12-15 15:54 | disposition expired | DRG 871 ==
LOC: ED 11:37 → ICU 15:10
PROVIDERS: ADMIT Family Medicine; ATTEND Family Medicine
DX: A41.9 Sepsis, unspecified organism (principal); R65.21 Severe sepsis with septic shock; J69.0 Pneumonitis due to inhalation of food and vomit; R47.01 Aphasia; R78.81 Bacteremia; I25.810 Atherosclerosis of coronary artery bypass graft(s) without angina pectoris; A49.02 Methicillin resistant Staphylococcus aureus infection, unspecified site; I73.9 Peripheral vascular disease, unspecified; I69.30 Unspecified sequelae of cerebral infarction; Z85.118 Personal history of other malignant neoplasm of bronchus and lung; I69.391 Dysphagia following cerebral infarction; I10 Essential (primary) hypertension; E03.9 Hypothyroidism, unspecified; Z93.1 Gastrostomy status; Z79.899 Other long term (current) drug therapy; I50.9 Heart failure, unspecified; E11.9 Type 2 diabetes mellitus without complications; E05.90 Thyrotoxicosis, unspecified without thyrotoxic crisis or storm; K21.9 Gastro-esophageal reflux disease without esophagitis
CPT/HCPCS: 36000; 36415; 36600; 71045; 80053; 82375; 82803; 83605; 83880; 84484; 85025; 87040; 87077; 87186; 93005; 93041; 94002; 94640; 94760; 96360; 96361; 96365; 99285; J0696; J2543; J7609; A9270-GY